=== PATIENT | female | born 1965 | race Caucasian/White ===

== ENCOUNTER → 2016-08-13 | Outpatient (CLI) | payer BC ==
[~2016-08-13] MED LIST: BACTRIM DS 8001 TA1 PO; CLINDAMYCIN300 MG PO; GLUCOSAMINE & C1 CA2; HYDROCODONE BIT1 T11 PO; KEFLEX500 MG PO; NAPROSYN500 MG PO; PREDNISONE10 MG PO; ULTRAM50 MG PO; VICODIN 5/500 505 MG PO; ZOFRAN ODT4 MG SL; ZOLOFT100 MG PO; ZOLOFT50 MG PO
== END | disposition home or self-care (01) ==
LOC: CT 08:47
DX: R31.9 Hematuria, unspecified (principal); R10.9 Unspecified abdominal pain

== ENCOUNTER → 2016-10-16 | Outpatient (CLI) | payer BC | END | disposition home or self-care (01) | LOC: US 16:39 | DX: N32.89 Other specified disorders of bladder (principal); Z96.0 Presence of urogenital implants ==

== ENCOUNTER 2019-10-10 22:43 | Emergency (ER) | payer OTHER, BC ==
[~2019-10-10] VITALS: Ht 157.4 cm; Wt 72.6 kg
[2019-10-10] MEDS ORDERED: CIPROFLOXACIN OP (23:35)
== END 2019-10-11 00:49 | disposition home or self-care (01) ==
LOC: ED 22:43
DX: H10.213 Acute toxic conjunctivitis, bilateral (principal); G24.5 Blepharospasm; Z88.0 Allergy status to penicillin; Z88.8 Allergy status to other drugs, medicaments and biological substances; Z79.899 Other long term (current) drug therapy

== ENCOUNTER → 2021-04-08 | Outpatient (CLI) | payer BC ==
[~2021-04-08] MED LIST changes: +CIPROFLOXACIN OP
== END | disposition home or self-care (01) ==
LOC: MAMMO 08:51
PROVIDERS: ATTEND Family Medicine
DX: Z12.31 Encounter for screening mammogram for malignant neoplasm of breast (principal)

== ENCOUNTER 2022-08-11 14:10 | Emergency (ER) | payer OTHER ==
[~2022-08-11] VITALS: Wt 54.4 kg
== END 2022-08-11 18:41 | disposition home or self-care (01) ==
LOC: ED 14:10
DX: H10.213 Acute toxic conjunctivitis, bilateral (principal); Z91.011 Allergy to milk products; Z79.899 Other long term (current) drug therapy; Z88.0 Allergy status to penicillin; Z88.1 Allergy status to other antibiotic agents; Z88.8 Allergy status to other drugs, medicaments and biological substances

== ENCOUNTER → 2022-10-15 | Outpatient (CLI) | payer OTHER | END | disposition home or self-care (01) | LOC: RAD 12:23 | PROVIDERS: ATTEND Family Medicine | DX: M19.032 Primary osteoarthritis, left wrist (principal); M19.031 Primary osteoarthritis, right wrist; M19.072 Primary osteoarthritis, left ankle and foot; M19.071 Primary osteoarthritis, right ankle and foot; G56.02 Carpal tunnel syndrome, left upper limb ==

== ENCOUNTER 2023-03-23 11:50 | Emergency (ER) | payer OTHER ==
[~2023-03-23] VITALS: Ht 157.4 cm; Wt 59.0 kg
[2023-03-23] MEDS ORDERED: ESCITALOPRAM OX20 MG PO (12:01)
[2023-03-23 12:22] LABS: BASO % 0.3 % (0.0-1.0); EOS % 0.3 % (1.0-4.0); HEMATOCRIT 44.7 % (37.0-47.0); LYMPH # 1.1 10*3/uL (1.3-4.4); LYMPH % 17.5 % (27.0-41.0); MEAN CELL VOLUME 89.6 fl (81.0-99.0); MEAN CORPUSCULAR HGB 31.1 pg (27.0-31.0); MEAN CORPUSCULAR HGB CONC 34.7 g/dl (33.0-37.0); MEAN PLATELET VOLUME 8.8 fl (9.6-12.3); MONO # 0.6 10*3/uL (0.1-1.0); MONO % 9.1 % (3.0-9.0); NEUT # 4.6 10*3/uL (2.3-7.9); NEUT % 72.6 % (47.0-73.0); PLATELET COUNT AUTOMATED 181 10*3/uL (130-400); RED BLOOD COUNT 4.99 10*6/uL (4.10-5.10); RED CELL DISTRI WIDTH 12.6 % (0-14.5); WHITE BLOOD COUNT 6.3 10*3/uL (4.8-10.8)
[2023-03-23 12:47] LABS: ALKALINE PHOSPHATASE 70 U/L (46-116); BUN 12 mg/dl (9-23); CHLORIDE 101 mmol/L (98-107); SGPT/ALT 31 U/L (5-49)
[2023-03-23] MEDS ORDERED: IBU800 M1 PO (13:12)
[2023-03-23] MEDS ORDERED: REGLAN10 M1 PO (13:12)
[2023-03-23] MEDS ORDERED: DEXAMETHASONE6 MG PO (13:12)
== END 2023-03-23 14:04 | disposition home or self-care (01) ==
LOC: ED 11:50
PROVIDERS: Emergency Medicine
DX: U07.1 COVID-19 (principal); R51.9 Headache, unspecified; Z91.013 Allergy to seafood; Z88.0 Allergy status to penicillin; Z88.2 Allergy status to sulfonamides; Z88.1 Allergy status to other antibiotic agents; Z88.8 Allergy status to other drugs, medicaments and biological substances; Z90.711 Acquired absence of uterus with remaining cervical stump; Z98.890 Other specified postprocedural states